=== PATIENT | female | born 1990 | race Caucasian/White ===

== ENCOUNTER 2017-10-01 07:17 | Emergency (ER) | payer OTHER ==
[~2017-10-01] VITALS: Ht 160 cm; Wt 81.6 kg
[2017-10-01 07:21] VITALS: BP 121/69
--- NOTE | 2017-10-01 07:29 | NUR ---
PT AMBULATED TO BED 3.
--- NOTE | 2017-10-01 07:30 | NUR ---
27F BIB SELF C/O LEFT WRIST PAIN, PRESSURE/SHARP, RADIATES TO LEFT FOREARM, 10/10 X THIS MORNING S/P FALL; LEFT CAP REFILL < 2 SECONDS, LEFT RADIAL PULSE +2, NO LOSS OF SENSATION TO LEFT ARM AT THIS TIME; SWELLING NOTED TO LEFT WRIST AT THIS TIME; PT STATES LOC FOR UNKNOWN AMOUNT OF TIME AT TIME OF FALL; PT AA&OX4, PERRLA AT THIS TIME; BL LUNG SOUNDS CLEAR, RR EVEN/UNLABORED, SKIN IS WARM/DRY/INTACT; PT STATES NO N/V/D AT THIS TIME; PT RESTING IN BED WITH HOB ELEVATED AND IN LOWEST POSITION; POSITIONED FOR COMFORT; ER MD MADE AWARE OF STATUS. WILL CONTINUE TO MONITOR.
--- NOTE | 2017-10-01 07:32 | NUR ---
XRAY AT BEDSIDE.
--- NOTE | 2017-10-01 07:51 | NUR ---
ER MD DR. FERNANDO EVALUATING PT AT BEDSIDE.
[2017-10-01] MEDS ORDERED: PROPOFOL 200 MG/20 ML VIAL IV ONE ×2 (07:55→09:25)
[2017-10-01] MEDS ORDERED: KETOROLAC 30 MG/ML VIAL IVP ONE (07:55)
--- NOTE | 2017-10-01 09:13 | NUR ---
ER MD DR. FERNANDO CALLED TIME OUT FOR CONSCIOUS SEDATION, REDUCTION OF LEFT RADIUS.
--- NOTE | 2017-10-01 09:15 | NUR ---
ER MD DR. FERNANDO ADMINISTERED 75MG PROPOFOL IVP TO RT HAND. PT TOLERATED WELL.
--- NOTE | 2017-10-01 09:17 | NUR ---
ER MD DR. FERNANDO PERFORMED REDUCTION TO LEFT RADIUS WITH EMT SAVANNA, RN LEVI, RT KEVIN AND RT CELY AT BEDSIDE.
--- NOTE | 2017-10-01 09:19 | NUR ---
ER MD DR. FERNANDO AND EMT SAVANNA PROVIDED SPLINT TO PATIENT.
--- NOTE | 2017-10-01 09:22 | NUR ---
ATTENDED CONSIOUS SEDATION WITH RT CELY. SPO2 97% HR 82 CO2 38 RR 18. NO SOB OR DISTRESS NOTED. PLACED PT ON [address] REQUEST.
--- NOTE | 2017-10-01 09:23 | NUR ---
RT AT BEDSIDE FOR POST-REDUCTION XRAY OF LEFT WRIST.
--- NOTE | 2017-10-01 09:30 | NUR ---
PT AA&OX4 AT THIS TIME; ABLE TO FOLLOW ALL COMMANDS AND MOVE ALL EXTREMITIES; RR EVEN/UNLABORED; WILL CONTINUE TO MONITOR.
--- NOTE | 2017-10-01 10:05 | NUR ---
IV removed, catheter intact and site benign. Applied folded 4x4 gauze and tape to stop bleeding. PT TOLERATED PROCEDURE WELL.
[2017-10-01 10:10] VITALS: BP 139/79
--- NOTE | 2017-10-01 10:10 | NUR ---
Patient discharged with v/s stable. Written and verbal after care instructions given and explained. Patient alert, oriented and verbalized understanding of instructions. Ambulatory with steady gait. All questions addressed prior to discharge. ID band removed. Patient advised to follow up with PMD. Rx of NAPROSYN 375MG TAB AND NORCO 5MG-325MG TAB given. Patient educated on indication of medication including possible reaction and side effects. Opportunity to ask questions provided and answered.
== END 2017-10-01 10:10 | disposition home or self-care (01) ==
LOC: MED 07:17
DX: S52.512A Displaced fracture of left radial styloid process, initial encounter for closed fracture (principal); S52.612A Displaced fracture of left ulna styloid process, initial encounter for closed fracture; W01.0XXA Fall on same level from slipping, tripping and stumbling without subsequent striking against object, initial encounter; Y93.89 Activity, other specified; Y92.481 Parking lot as the place of occurrence of the external cause; Y99.8 Other external cause status
CPT/HCPCS: 25605; 73090; 73110; 96374; 99152; 99285; J1885; J2704; Q0092

== ENCOUNTER 2018-05-09 11:02 | Emergency (ER) | payer OTHER ==
[~2018-05-09] VITALS: Ht 160 cm; Wt 99.8 kg
[2018-05-09 11:10] VITALS: BP 109/69
--- NOTE | 2018-05-09 11:15 | NUR ---
Note undone in EDM - 05/09/18 at 1137 by VENUS PT. CAME INTO THE ED DUE TO ALLERGIC REACTION TO HAIR DYE X 5 DAYS. PT. STATES " I GET REACTIONS TO HAIR DYES BUT I DECIDED TO TRY THIS NEW ONE OUT SUPPOSIVELY IT WAS MORE NATURAL". PT. HAS 10/10 PAIN IN SCALP AND EARS AND NECK THAT IS BURNING AND ITCHING PAIN. DENIES SOB, PT. ABLE TO SPEAK IN COMPLETE SENTENCES. [facility] [place] NOTIFIED. WILL CONTINUE TO MONITOR.
--- NOTE | 2018-05-09 11:15 | NUR ---
PT. CAME INTO THE ED DUE TO ALLERGIC REACTION TO HAIR DYE X 5 DAYS. PT. STATES " I GET REACTIONS TO HAIR DYES BUT I DECIDED TO TRY THIS NEW ONE OUT SUPPOSIVELY IT WAS MORE NATURAL". PT. HAS 10/10 PAIN IN SCALP AND EARS AND NECK THAT IS BURNING AND ITCHING PAIN. PT. HAS BLISTERS AND RASH ON SCALP , NECK AND BILAT. EARS AND BILATERAL WRISTS. R EAR BLISTER NOTED TO HAVE WHITE DRAINAGE.DENIES SOB, PT. ABLE TO SPEAK IN COMPLETE SENTENCES. ER NOTIFIED. WILL CONTINUE TO MONITOR.
[2018-05-09 11:35] VITALS: BP 109/69
--- NOTE | 2018-05-09 11:35 | NUR ---
Patient discharged with v/s stable. Written and verbal after care instructions given and explained. Patient alert, oriented and verbalized understanding of instructions. Ambulatory with steady gait. All questions addressed prior to discharge. ID band removed. Patient advised to follow up with PMD. Rx of PREDNISONE 50MG , FLUOCINOLONE, CLARITIN given. Patient educated on indication of medication including possible reaction and side effects. Opportunity to ask questions provided and answered.
== END 2018-05-09 11:35 | disposition home or self-care (01) ==
LOC: MED 11:02
DX: L25.9 Unspecified contact dermatitis, unspecified cause (principal)
CPT/HCPCS: 99283

== ENCOUNTER 2019-01-23 13:06 | Emergency (ER) | payer OTHER ==
[~2019-01-23] VITALS: Ht 162.6 cm; Wt 103.9 kg
[2019-01-23 13:12] VITALS: BP 137/111
--- NOTE | 2019-01-23 13:15 | NUR ---
PATIENT AMBULATED TO BED 1 AT THIS TIME.
--- NOTE | 2019-01-23 13:36 | NUR ---
PT C/O COUGH X5 DAYS, PT STATES THAT SHE WORKS IN [employer]. REPORTS CHILLS, RUNNY NOSE. TOOK FLU MEDICATION. VSS; PATIENT POSITIONED FOR COMFORT; HOB ELEVATED; BEDRAILS UP X1; BED DOWN. ER MD MADE AWARE OF PT STATUS.
[2019-01-23] MEDS ORDERED: NACL 0.9% 1,000 ML IV ONE (15:15)
[2019-01-23] MEDS ORDERED: KETOROLAC 30 MG/ML VIAL IVP ONE (15:15)
[2019-01-23 16:40] VITALS: BP 135/90
--- NOTE | 2019-01-23 16:41 | NUR ---
Patient discharged with v/s stable. Written and verbal after care instructions given and explained. Patient alert, oriented and verbalized understanding of instructions. Ambulatory with steady gait. All questions addressed prior to discharge. ID band removed. Patient advised to follow up with PMD. Rx of MOTRIN AND PREDNISONE given. Patient educated on indication of medication including possible reaction and side effects. Opportunity to ask questions provided and answered.
== END 2019-01-23 16:41 | disposition home or self-care (01) ==
LOC: MED 13:06
DX: R05 Cough (principal); R50.9 Fever, unspecified; R07.9 Chest pain, unspecified; R06.02 Shortness of breath; Z98.890 Other specified postprocedural states
CPT/HCPCS: 96374; 99283; J1885; J7030

== ENCOUNTER 2023-10-05 12:54 | Emergency (ER) | payer OTHER ==
[~2023-10-05] VITALS: Ht 170.2 cm; Wt 86.2 kg
[2023-10-05 12:58] VITALS: BP 140/72; PULSE 102; RESP 18; TEMP 98.1; O2SAT 96
[2023-10-05 14:28] VITALS: O2SAT 96
== END 2023-10-05 15:57 | disposition home or self-care (01) ==
LOC: MED 12:54
DX: F10.129 Alcohol abuse with intoxication, unspecified (principal); I11.0 Hypertensive heart disease with heart failure; I50.9 Heart failure, unspecified; F17.200 Nicotine dependence, unspecified, uncomplicated; Y90.9 Presence of alcohol in blood, level not specified
CPT/HCPCS: 99283

== ENCOUNTER 2023-10-09 14:41 | Emergency (ER) | payer OTHER ==
[~2023-10-09] VITALS: Ht 167.6 cm; Wt 81.6 kg
[2023-10-09 14:45] VITALS: BP 139/71; PULSE 122; RESP 22; TEMP 97; O2SAT 98
[2023-10-09] MEDS ORDERED: HALOPERIDOL IM 5 MG/ML VIAL IM ONE (14:55)
[2023-10-09 15:51] VITALS: PULSE 102
== END 2023-10-09 15:57 | disposition home or self-care (01) ==
LOC: MED 14:41
DX: S13.4XXA Sprain of ligaments of cervical spine, initial encounter (principal); S60.512A Abrasion of left hand, initial encounter; F10.129 Alcohol abuse with intoxication, unspecified; I11.0 Hypertensive heart disease with heart failure; I50.9 Heart failure, unspecified; Y90.9 Presence of alcohol in blood, level not specified; V89.2XXA Person injured in unspecified motor-vehicle accident, traffic, initial encounter; Y93.89 Activity, other specified; Y92.410 Unspecified street and highway as the place of occurrence of the external cause; Y99.8 Other external cause status
CPT/HCPCS: 99283

== ENCOUNTER 2023-10-17 11:12 | Emergency (ER) | payer OTHER ==
[~2023-10-17] VITALS: Ht 167.6 cm; Wt 81.6 kg
[2023-10-17 11:15] VITALS: BP 105/74; PULSE 99; RESP 16; TEMP 98; O2SAT 97
[2023-10-17 11:21] VITALS: BP 105/74; PULSE 99; RESP 16; TEMP 98; O2SAT 97
== END 2023-10-17 11:21 | disposition left against medical advice (07) ==
LOC: MED 11:12
DX: F10.129 Alcohol abuse with intoxication, unspecified (principal); Z53.21 Procedure and treatment not carried out due to patient leaving prior to being seen by health care provider
CPT/HCPCS: 99281

== ENCOUNTER 2023-10-24 13:27 | Emergency (ER) | payer OTHER ==
[~2023-10-24] VITALS: Ht 172.7 cm; Wt 113.4 kg
[2023-10-24 13:35] VITALS: RESP 21
== END 2023-10-24 13:53 ==
LOC: MED 13:27
DX: Z02.89 Encounter for other administrative examinations (principal); I11.0 Hypertensive heart disease with heart failure; I50.9 Heart failure, unspecified
CPT/HCPCS: 99283